=== PATIENT | female | born 1970 | race African-American/Black ===

== ENCOUNTER 2016-07-17 23:19 | Emergency (ER) | payer MEDICAID, OTHER ==
[~2016-07-17] VITALS: Ht 165.1 cm; Wt 89.8 kg
[2016-07-17 23:29] VITALS: BP 140/78
[2016-07-18 00:10] LABS: Albumin 3.1 g/dL (3.4-5.0); Anion Gap 9 (5-15); Aspartate Aminotransferase 19 U/L (15-37); Blood Urea Nitrogen 9 mg/dL (7-18); Calcium 8.1 mg/dL (8.5-10.1); Carbon Dioxide 25 mmol/L (21-32); Chloride 106 mmol/L (98-107); GFR African American 87 mL/min; GFR Non-African American 72 mL/min; Glucose 96 mg/dL (74-106); Potassium 4.1 mmol/L (3.5-5.1); Sodium 140 mmol/L (136-145)
[2016-07-18 00:15] LABS: Alkaline Phosphatase 84 U/L (45-117); Bilirubin, Total 0.2 mg/dL (0.2-1.0)
[2016-07-18 00:17] LABS: B-Type Natriuretic Peptide 14.6 pg/mL (0-100)
[2016-07-18 00:18] LABS: Temperature: 23.1 C (20.0-25.0)
[2016-07-18 00:28] LABS: Eosinophils # (auto) 0 uL; Hematocrit 40.5 % (36.0-46.0); Neutrophils # (auto) 4.1 uL; Neutrophils % (auto) 61.9 % (37.0-80.0); Red Cell Distribution Width 15.4 % (11.6-16.0); White Blood Cell 6.6 10^3/uL (4.4-10.8)
[2016-07-18 00:29] LABS: Basophils # (auto) 0.1 uL; Basophils % (auto) 2.1 % (0.0-2.0); Eosinophils % (auto) 0.2 % (0.0-7.0); Lymphocytes # (auto) 1.4 uL; Lymphocytes % (auto) 21.1 % (10.0-50.0); Mean Corpuscular Hemoglobin 25.2 pg (28.0-32.0); Mean Corpuscular Hgb Conc. 32.2 g/dL (32.0-36.0); Mean Corpuscular Volume 78.5 fL (80.0-100.0); Mean Platelet Volume 8.9 fL (7.4-10.4); Monocytes % (auto) 14.7 % (0.0-12.0); Platelet Count (auto) 288 10^3/uL (140-450)
== END 2016-07-18 02:24 | disposition left against medical advice (07) ==
LOC: ER 23:23
DX: R06.02 Shortness of breath (principal); Z53.21 Procedure and treatment not carried out due to patient leaving prior to being seen by health care provider
CPT/HCPCS: 36415; 71020; 80053; 83735; 83880; 84484; 85025; 93005